=== PATIENT | female | born 1950 | race Caucasian/White ===

== ENCOUNTER → 2018-08-27 | Outpatient (CLI) | payer MEDICARE ==
[~2018-08-27] MED LIST: REGADENOSON 0.4 MG/5 ML DISP.SYRIN. IV ONE
--- NOTE | 2018-08-27 11:42 | PCVCIMAG ---
APPROVED REPORT Imaging Protocol: Rest Tc-99m/Stress Tc-99m 1 day Study performed: 08/27/2018 09:20:43 Indication: High Ca Score Patient Location: Out-Patient Stress Nurse: Ruby Salinas RN, Selena Mcduffie RN ND Tech:Lashawn BRYN Zaragoza Ht: 5 ft 3 in Wt: 165 lbs BSA: 1.78 m2 HR: 60 bpm BP: 183/76 mmHg BMI: 29.22 Rhythm: Sinus Bradycardia Medical History Medical History: Diabetes, HTN, COPD Medications: Irbesartan, Metformin, Synthroid, Insuilin Allergies: PCN Sulfa Cardiac Risk Factors: Age, FHX of CAD Pretest Chest Pain Characteristics: No chest pain Exercise History: Indeterminate Physical Disabilities: Knees Resting Data Rest SPECT myocardial perfusion imaging was performed in supine position 45 minutes following the intravenous injection of 10.2 mCi of Tc-99m Sestamibi. Time of rest injection: 0840 Date: 08/27/2018 Administration Route: IV Administration Site: Right Arm Pharmacologic Stress Pharmacologic stress test was performed by injecting Regadenoson 0.4 mg IV push over 10-15 seconds immediately followed by the intravenous injection of 32.7 mCi of Tc-99m Sestamibi. Time of stress injection: 1000 Date: 08/27/2018 Administration Route: IV Administration Site: Right Arm Gated Stress SPECT was performed 45 minutes after stress injection. The images were gated to evaluate regional wall motion and calculate left ventricular ejection fraction. Stress Test Details Stress Test: Pharmacologic stress was paired with low level exercise. Reason for pharmacologic stress test: knee issues. HRMax Heart Rate (APMHR): 152 bpm Resting HR: 60 bpmTarget HR (85% APMHR): 129 bpm Max HR Achieved: 110 bpm % of APMHR: 72 Recovery HR: 73 bpm BP Resting BP: 183/76 mmHg Max BP: 162/71 mmHg Recovery BP: 144/67 mmHg ECG Resting ECG: Sinus Bradycardia Stress ECG: Sinus Rhythm ST Change: Non-ischemic Arrhythmia: None Recovery ECG: Sinus Rhythm Clinical Reason for Termination: Completed protocol Stress Symptoms: Abdominal discomfort Exercise duration: 4 min 00 sec Exercise capacity: 1.6 METs Symptoms resolved with caffeine. Study Quality Study: Good Artifact: Mild Soft tissue attenuation artifact Study Data Post stress, the left ventricular ejection was 76%.. SSS: 0 SRS: 0 SDS: 0 TID = 0.84. Perfusion There is a small area of mildly reduced uptake in the apical segment of the inferolateral wall which is seen on the stress images as well as the resting images. This area thickens and moves normally and is most consistent with attenuation artifact. Wall Motion Normal left ventricular wall motion. Nuclear Conclusion ECG Findings: non-ischemic Clinical Findings: non-diagnostic Nuclear Findings: negative for ischemia Exercise Capacity: not assessed Left Ventricular Function: normal Risk Study: low This study is of low probability for inducible ischemia or prior infarct. Normal global and segmental LV systolic function. Artifact: Mild Soft tissue attenuation artifact
== END | disposition home or self-care (01) ==
LOC: PCVCIMAG 09:57
PROVIDERS: ATTEND Internal Medicine Cardiovascular Disease
DX: R93.1 Abnormal findings on diagnostic imaging of heart and coronary circulation (principal); I10 Essential (primary) hypertension; E78.00 Pure hypercholesterolemia, unspecified; K21.9 Gastro-esophageal reflux disease without esophagitis; I25.10 Atherosclerotic heart disease of native coronary artery without angina pectoris; Z79.4 Long term (current) use of insulin
CPT/HCPCS: 78452; 93017; A9500; G0463; J2785